=== PATIENT | male | born 1945 | race Caucasian/White ===

== ENCOUNTER 2017-04-17 13:18 | Emergency (ER) | payer MEDICARE ==
[2017-04-17] MEDS ORDERED: Ondansetron ODT TAB* 4 MG PO ONE ×2 (13:25→13:58)
[2017-04-17 13:37] VITALS: BP 157/71
--- NOTE | 2017-04-17 13:56 | UC ---
Dizzy HPI HPI Summary: ONSET TODAY OF DIZZINESS, NAUSEA AND VOMITING. PT HAS HAD MENIERES DISEASE DX FOR ABOUT 4 YEARS. USUALLY SX ARE WELL CONTROLLED AND WHEN HE DOES BECOME SYMPTOMATIC HE FEELS BETTER AFTER TAKING CLONAZEPAM. USUALLY GOES MANY MONTHS WITHOUT SX. TODAY THE CLONAZEPAM DID NOT WORK AND HE HAS BEEN HAVING INCREASE IN FREQUENCY OF EPISODES OVER THE PAST SEVERAL WEEKS. HAPPENING AT LEAST ONCE PER WEEK NOW. 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 - History Of Current Complaint Chief Complaint: UCGI Stated Complaint: VOMITING, AND DIZZINESS Time Seen by Provider: 04/17/17 13:25 Hx Obtained From: Patient Onset/Duration: Sudden Onset, Lasting Hours, Still Present Timing: Constant Severity Initially: Moderate Severity Currently: Moderate Pain Intensity: 0 Pain Scale Used: 0-10 Numeric Character: Dizzy Aggravating Factor(s): Position Change Alleviating Factor(s): Rest Associated Signs And Symptoms: Positive: Nausea, Vomiting, Tinnitus. Negative: Diaphoresis, Chest Pain, SOB, Palpitations, Visual Changes, Decreased Oral Intake, Change In Medication - Allergies/Home Medications Allergies/Adverse Reactions: Allergies Allergy/AdvReac Type Severity Reaction Status Date / Time Ciprofloxacin [From Cipro] Allergy Rash Verified 04/17/17 13:37 Penicillins Allergy throat Verified 04/17/17 13:37 swelling Home Medications: Home Medications Atorvastatin* [Lipitor 20 MG*] 20 mg PO DAILY 04/17/17 [History Confirmed ] Cholecalciferol [Vitamin D3 Adult Gummies] 400 units PO DAILY 04/17/17 [History Confirmed 04/17/17] Clonazepam [Clonazepam Odt] 4 mg PO DAILY PRN 04/17/17 [History Confirmed ] Famotidine TAB* [Pepcid 20 MG TAB*] 40 mg PO DAILY 04/17/17 [History Confirmed 04/17/17] Multiple Vitamin [One-A-Day Adult Vitacrave] 1 tab PO DAILY 04/17/17 [History Confirmed 04/17/17] [place]-3 Fatty Acids [Fish Oil] 1 tab PO DAILY 04/17/17 [History Confirmed ] PMH/Surg Hx/FS Hx/Imm Hx - Additional Past Medical History Additional PMH: MENIERE'S DISEASE - Surgical History Surgical History: Yes Surgery Procedure, Year, and Place: 2010 [place]AROSCOPIC APPEN[place]CTOM[place] [facility] [place] REPAIR RIGHT INGUINAL HERNIA - Family History Known Family History: Negative: Hypertension - Social History Alcohol Use: None Substance Use Type: None Smoking Status (MU): Former Smoker Type: Cigarettes Amount Used/How Often: 1-2 PPD X 20 YRS Have You Smoked in the Last Year: No When Did the Patient Quit Smoking/Using Tobacco: 1980 - Immunization History Most Recent Influenza Vaccination: NOt UTD Review of Systems Constitutional: Negative ENT: Negative Respiratory: Negative Cardiovascular: Negative Gastrointestinal: Vomiting, Nausea Neurological: Other - DIZZY All Other Systems Reviewed And Are Negative: Yes Physical Exam Triage Information Reviewed: Yes Appearance: Well-Appearing, No Pain Distress, Well-Nourished Vital Signs: Initial Vital Signs Temp 97.0 F 04/17/17 13:33 Pulse 70 04/17/17 13:33 Resp 18 04/17/17 13:33 BP 157/71 04/17/17 13:33 Pulse Ox 98 04/17/17 13:33 Vital Signs Reviewed: Yes Eyes: Positive: Conjunctiva Clear ENT: Positive: Hearing grossly normal, Pharynx normal, TMs normal Neck: Positive: Supple Respiratory Exam: Normal Cardiovascular Exam: Normal Abdomen Description: Positive: Soft Musculoskeletal: Positive: No Edema Neurological: Positive: Alert, Other: - MILD DIZZINESS WITH CHANGE IN HEAD POSITION Psychological: Positive: Normal Response To Family, Age Appropriate Behavior Skin: Negative: rashes Diagnostics - EKG Cardiac Rate: Bradycardia - 57 BPM. NO SIGNIFICANT CHANGE FROM PREVIOUS Cardiac Rhythm: Sinus: Normal Ectopy: None ST Segment: Non-Specific - RBBB Dizzy Course/Dx - Course Course Of Treatment: GIVEN INCREASED FREQUENCY OF EPISODES WOULD RECOMMEND EVAL BY ENT JORGE. I SPOKE WITH DR. OLSON WHO AGREED WITH ZOFRPOLLO AND WAGNER AND ADVISED THAT PT CALL THE OFFICE TODAY TO SCHEDULE AN APPT. TO ER IF UNABLE TO MANAGE SX AT HOME. - Differential Dx/Diagnosis Provider Diagnoses: SYMPTOMATIC MENIERE'S DISEASE - Physician Notifications Discussed Patient Care With: Eliceo Olson - AGREES WITH ZOFRJOSE M ABADLIZINE AND CLOSE OUTPT F/U Time Discussed With Above Provider: 13:50 Instructed by Provider To: Have Pt Call For Appt. Discharge - Discharge Plan Condition: Stable Disposition: HOME Prescriptions: Meclizine HCl [Meclizine 25] 25 mg PO TID PRN #30 tab PRN Reason: Dizziness Ondansetron ODT TAB* [Zofran Odt TAB*] 4 mg PO Q6H PRN #20 tab.odt PRN Reason: Nausea/Vomiting Patient Education Materials: Meniere Disease (ED) Referrals: Romeo Goodson MD [Medical Doctor] - As Soon As Possible (CALL THE OFFICE TODAY TO SECURE AN APPT FOR NEXT WEEK PER DR. OLSON.) Jr Wolf DO [Primary Care Provider] - If Needed Additional Instructions: I SPOKE WITH DR. OLSON WITH ENT TODAY. HE AGREES WITH ZOFRAN AND MECLIZINE FOR SYMPTOM RELIEF AND ADVISES YOU CALL TODAY TO SCHEDULE A FOLLOW-UP APPT FOR SOONER RATHER THAN LATER. I WOULD RECOMMEND YOU BE SEEN EARLY NEXT WEEK. GO TO THE ER WITHOUT FAIL IF YOU ARE UNABLE TO MANAGE YOUR SYMPTOMS AT HOME.
[2017-04-17] MEDS ORDERED: Meclizine TAB* 12.5 MG PO ONE (13:58)
== END 2017-04-17 14:25 | disposition home or self-care (01) ==
LOC: UCEAST 13:18
DX: H81.09 Meniere's disease, unspecified ear (principal); Z88.0 Allergy status to penicillin; Z87.891 Personal history of nicotine dependence
CPT/HCPCS: 93005; 99212; A9270-GY; G0463